=== PATIENT | female | born 1970 | race Caucasian/White ===

== ENCOUNTER 2020-09-18 20:47 | Emergency (ER) | payer OTHER ==
[2020-09-18 21:49] VITALS: BP 133/76; PULSE 93; RESP 18; TEMP 98.2
--- NOTE | 2020-09-18 22:54 | ED ---
Recheck HPI - General Chief Complaint: Recheck/Abnormal Lab/Rx Stated Complaint: diarrhea Time Seen by Provider: 09/18/20 22:53 Source: family Mode of arrival: ambulatory Limitations: no limitations - History of Present Illness Initial Comments: 50-year-old female patient presents to the emergency department today requesting testing for COVID-19. Patient states that she has been having symptoms for the last 4-5 days. States that her son tested positive. States that she needs a positive test for her job. States that she is having cough, nausea, fatigue. Denies any significant shortness of breath. Denies any rash. States she is also having some diarrhea but eating yogurt seems to help. Denies any known fever or chills. Patient denies any recent chest pain, abdominal pain, back pain, numbness, tingling, dizziness, weakness, hematuria, dysuria, urinary urgency, urinary frequency, headache, visual changes, or any other complaints. - Related Data Previous Rx's Medication Instructions Recorded Medroxyprogesterone Acetate 10 mg PO DAILY #10 tab 07/30/15 [Provera] Allergies Allergy/AdvReac Type Severity Reaction Status Date / Time Penicillins Allergy Unknown Verified 09/18/20 21:49 Review of Systems ROS Statement: Those systems with pertinent positive or pertinent negative responses have been documented in the HPI. ROS Other: All systems not noted in ROS Statement are negative. Past Medical History Past Medical History: No Reported History History of Any Multi-Drug Resistant Organisms: None Reported Additional Past Surgical History / Comment(s): uterine surgery after childbirth Past Psychological History: No Psychological Hx Reported Smoking Status: Never smoker Past Alcohol Use History: None Reported Past Drug Use History: None Reported General Exam Limitations: no limitations General appearance: alert, in no apparent distress, other (Physical well- developed, well-nourished adult female patient in no acute distress.) Respiratory exam: Present: normal lung sounds bilaterally. Absent: respiratory distress, wheezes, rales, rhonchi, stridor Cardiovascular Exam: Present: regular rate, normal rhythm, normal heart sounds. Absent: systolic murmur, diastolic murmur, rubs, gallop, clicks GI/Abdominal exam: Present: soft, normal bowel sounds. Absent: distended, tenderness, guarding, rebound, rigid Neurological exam: Present: alert, oriented X3, CN II-XII intact Psychiatric exam: Present: normal affect, normal mood Skin exam: Present: warm, dry, intact, normal color. Absent: rash Course Vital Signs 09/18/20 21:43 Temperature 98.2 F Pulse Rate 93 Respiratory 18 Rate Blood Pressure 133/76 O2 Sat by Pulse 97 Oximetry Medical Decision Making - Medical Decision Making 50-year-old female patient presented to the emergency department today requesting COVID-19 test. Has had symptoms for the last 4-5 days, but needs confirmation for her job. Physical examination is unremarkable. She did test positive. She declines further testing or evaluation. I did discuss receiving bamlanivimab infusion including risks and benefits of receiving and not receiving. She declines. I did discuss time parameters regarding infusion, she verbalized understanding. He is instructed to follow-up with her primary care physician for recheck in 1-2 days. Return parameters were discussed in detail. She verbalizes understanding and agrees with this plan. My attending is Dr. Harding. - Lab Data Lab Results 09/18/20 Range/Units 21:50 Coronavirus (PCR) Detected A (Not Detectd) Disposition Clinical Impression: COVID-19 Disposition: HOME SELF-CARE Condition: Good Instructions (If sedation given, give patient instructions): Coronavirus Disease 2019 (COVID-19) Additional Instructions: Follow up with primary care physician for recheck in 1-2 days. Return to the emergency department for any new, worsening, or concerning symptoms. Is patient prescribed a controlled substance at d/c from ED?: No Referrals: None,Stated [Primary Care Provider] - 1-2 days Time of Disposition: 22:54
== END 2020-09-18 23:03 | disposition home or self-care (01) ==
LOC: EC 20:47
DX: U07.1 COVID-19 (principal)
CPT/HCPCS: 87635; 99284

== ENCOUNTER 2024-03-16 14:44 | Emergency (ER) | payer OTHER ==
[2024-03-16 14:49] VITALS: BP 145/93; RESP 17; TEMP 98.6
--- NOTE | 2024-03-16 15:12 | ED ---
URI HPI - General Chief Complaint: Upper Respiratory Infection Stated Complaint: Cough, chest congestion Time Seen by Provider: 03/16/24 14:50 Source: patient, RN notes reviewed Mode of arrival: ambulatory Limitations: no limitations - History of Present Illness Initial Comments: This is a 53-year-old female who presents to the emergency department for URI symptoms. States that last week she was having coughing and congestion with associated headaches. Over the last couple of days states that this has moved to her chest she feels like it is making her short of breath. She is having difficulty coughing up all of the phlegm as a result. Denies any history of asthma or COPD. She has not yet been evaluated for these symptoms or taken any medication for it. Denies any fevers/chills or sick contacts. MD Complaint: cough, nasal congestion - Related Data Previous Rx's Medication Instructions Recorded Medroxyprogesterone Acetate 10 mg PO DAILY #10 tab 07/30/15 [Provera] Albuterol Sulfate [Albuterol 1 - 2 puff PO Q4-6H PRN #8.5 gm 03/16/24 Sulfate Hfa] Azithromycin [Zithromax] 250 mg PO DIRECTED 5 Days #6 tab 03/16/24 Benzonatate [Tessalon Perle] 200 mg PO TID PRN #30 capsule 03/16/24 Allergies Allergy/AdvReac Type Severity Reaction Status Date / Time Penicillins Allergy Unknown Verified 03/16/24 14:49 Review of Systems ROS Statement: Those systems with pertinent positive or pertinent negative responses have been documented in the HPI. ROS Other: All systems not noted in ROS Statement are negative. Past Medical History Past Medical History: No Reported History History of Any Multi-Drug Resistant Organisms: None Reported Additional Past Surgical History / Comment(s): uterine surgery after childbirth Past Psychological History: No Psychological Hx Reported Smoking Status: Never smoker Past Alcohol Use History: None Reported Past Drug Use History: None Reported General Exam Limitations: no limitations General appearance: alert, in no apparent distress Head exam: Present: atraumatic, normocephalic, normal inspection Respiratory exam: Present: decreased breath sounds, prolonged expiratory Cardiovascular Exam: Present: regular rate, normal rhythm, normal heart sounds. Absent: systolic murmur, diastolic murmur, rubs, gallop, clicks Neurological exam: Present: alert, oriented X3, CN II-XII intact Psychiatric exam: Present: normal affect, normal mood Skin exam: Present: warm, dry, intact, normal color. Absent: rash Course Vital Signs 03/16/24 03/16/24 03/16/24 14:45 15:58 16:06 Temperature 98.6 F Pulse Rate 99 84 82 Respiratory 17 Rate Blood Pressure 145/93 O2 Sat by Pulse 93 L Oximetry Medical Decision Making - Medical Decision Making This is a 53 year old female who presents to the emergency department for coughing and YOSEF. Was pt. sent in by a medical professional or institution? @ -No Did you speak to anyone other than the patient for history? @ -No Did you review nursing and triage notes? @ -Yes, and I agree, it is accurate with regards to the patient's symptoms. Were old charts reviewed? @ -No Differential Diagnosis? @ -Differential Cough: Influenza, Covid, RSV, croup, allergic rhinitis, GERD, pneumonia, bronchitis, COPD, viral pharyngitis, streptococcal pharyngitis, this is not meant to be an all-inclusive list. EKG interpreted by me (3pts min.)? @ -Not obtained X-rays interpreted by me (1pt min.)? @ -Chest x-ray obtained. My interpretation identifies an opacity in the left inferior lingula. CT interpreted by me (1pt min.)? @ -Not obtained U/S interpreted by me (1pt. min.)? @ -Not obtained What testing was considered but not performed? (CT, X-rays, U/S, labs)? Why? @ -None What meds were considered but not given? Why? @ -None Did you discuss the management of the patient with other professionals? @ -No Did you reconcile home meds? @ -No Was smoking cessation discussed for >3mins.? @ -No Was critical care preformed (if so, how long)? @ -No Were there social determinants of health that impacted care today? How? (Homelessness, low income, unemployed, alcoholism, drug addiction, transportation, low edu. Level, literacy, decrease access to med. care, care home, rehab)? @ -No Was there de-escalation of care discussed even if they declined? (Discuss DNR or withdrawal of care, Hospice)? @ -No What co-morbidities impacted this encounter? (DM, HTN, Smoking, COPD, CAD, Cancer, CVA, Hep., AIDS, mental health diagnosis, sleep apnea, morbid obesity)? @ -None Was patient admitted / discharged? @ -Discharged. COVID, influenza, and RSV testing negative. Chest x-ray demonstrates an inferior left lingular pneumonia. She was given 1g of IM Rocephin and 500 mg of azithromycin in the emergency department. 10 mg of IM Decadron and DuoNeb breathing treatment administered as well. Patient states that she has no comorbidities or respiratory illnesses and is comfortable with trying outpatient management first. She was given very strict return parameters. Prescription for azithromycin provided along with an albuterol inhaler and Tessalon Perles. Advised close follow-up with her PCP. Patient discharged home in stable condition. Case discussed with ED attending Dr. Che. Return precautions reviewed in depth, the patient is instructed to return to the emergency department with any new, worsening, or concerning symptoms. Patient verbalized understanding. Undiagnosed new problem with uncertain prognosis? @ -None Drug Therapy requiring intensive monitoring for toxicity (Heparin, Nitro, Insulin, Cardizem)? @ -None Were any procedures done? @ -None Diagnosis/symptom? @ -Pneumonia Acute, or Chronic, or Acute on Chronic? @ -Acute Uncomplicated (without systemic symptoms) or Complicated (systemic symptoms)? @ -Uncomplicated Side effects of treatment? @ -None Exacerbation, Progression, or Severe Exacerbation] @ -Not applicable Poses a threat to life or bodily function? @ -No - Lab Data Lab Results 03/16/24 Range/Units 14:50 Influenza Type A (PCR) Not Detected (Not Detectd) Influenza Type B (PCR) Not Detected (Not Detectd) RSV (PCR) Not Detected (Not Detectd) SARS-CoV-2 (PCR) Not Detected (Not Detectd) - Radiology Data Radiology results: report reviewed, image reviewed Disposition Clinical Impression: Pneumonia Disposition: HOME SELF-CARE Instructions (If sedation given, give patient instructions): Pneumonia (ED) Additional Instructions: Return to the emergency department with any new, worsening, or concerning symptoms. Take the antibiotic as prescribed for 5 days. Use the albuterol inhaler every 4-6 hours as needed for shortness of breath. You can take the cough medication up to every 8 hours. Follow up with your primary care provider in 1-2 days. Prescriptions: Albuterol Sulfate [Albuterol Sulfate Hfa] 1 - 2 puff PO Q4-6H PRN #8.5 gm PRN Reason: Shortness Of Breath Benzonatate [Tessalon Perle] 200 mg PO TID PRN #30 capsule PRN Reason: Cough Azithromycin [Zithromax] 250 mg PO DIRECTED 5 Days #6 tab Is patient prescribed a controlled substance at d/c from ED?: No Referrals: None,Stated [Primary Care Provider] - 1-2 days Forms: PH Area PCPs Time of Disposition: 16:08
--- NOTE | 2024-03-16 15:37 | XR ---
EXAMINATION TYPE: XR chest 2V DATE OF EXAM: 03/16/2024 COMPARISON: None HISTORY: 53 year-old female shortness of breath, difficulty breathing TECHNIQUE: PA and lateral views FINDINGS: Heart normal size. Moderate interstitial density with focal patchy inferior lingular opacity partiall y silhouetting the left heart margin. No pleural effusion. IMPRESSION: Exam positive for inferior lingular pneumonia. [facility], , 03/16/2024 3:34 PM
[2024-03-16] MEDS: IPRATROPIUM-ALBUTEROL 3 ML NEB INHALATION STA (15:57)
[2024-03-16 16:06] VITALS: PULSE 82
[2024-03-16] MEDS: DEXAMETHASONE SOD PHOSPHATE 10 MG/ML 1 ML VIAL IM STA (16:20)
[2024-03-16] MEDS: cefTRIAXone 1,000 MG VIAL (IM USE) IM STA (16:20)
[2024-03-16] MEDS: AZITHROMYCIN 500 MG TAB PO STA (16:21)
== END 2024-03-16 16:34 | disposition home or self-care (01) ==
LOC: EC 14:44
DX: R07.9 Chest pain, unspecified
CPT/HCPCS: 71046; 87636; 94640; 96372; 99283

== ENCOUNTER 2024-10-14 11:29 | Emergency (ER) | payer OTHER ==
[2024-10-14] MEDS ORDERED: IPRATROPIUM-ALBUTEROL 3 ML NEB INHALATION STA (12:01)
--- NOTE | 2024-10-14 12:17 | ED ---
General Adult HPI - General Chief complaint: Upper Respiratory Infection Stated complaint: difficulty breathing Time Seen by Provider: 10/14/24 11:42 Source: patient, RN notes reviewed Mode of arrival: ambulatory Limitations: no limitations - History of Present Illness Initial comments: 54-year-old female no significant past medical history presents to the emergency department for cough, congestion, shortness of breath. Patient states that this been going on since . She noted initially having muscle aches and cold sweats. She states that over the past couple of days she noticed that she has felt more winded with activity. She notes mild cough which is nonproductive. She also endorses head pressure and nasal congestion. Notes fevers at home. - Related Data Previous Rx's Medication Instructions Recorded Medroxyprogesterone Acetate 10 mg PO DAILY #10 tab 07/30/15 [Provera] Albuterol Sulfate [Albuterol 1 - 2 puff PO Q4-6H PRN #8.5 gm 03/16/24 Sulfate Hfa] Azithromycin [Zithromax] 250 mg PO DIRECTED 5 Days #6 tab 03/16/24 Benzonatate [Tessalon Perle] 200 mg PO TID PRN #30 capsule 03/16/24 Allergies Allergy/AdvReac Type Severity Reaction Status Date / Time Penicillins Allergy Unknown Verified 10/14/24 11:33 Review of Systems ROS Statement: Those systems with pertinent positive or pertinent negative responses have been documented in the HPI. ROS Other: All systems not noted in ROS Statement are negative. Past Medical History Past Medical History: No Reported History History of Any Multi-Drug Resistant Organisms: None Reported Additional Past Surgical History / Comment(s): uterine surgery after childbirth Past Psychological History: No Psychological Hx Reported Smoking Status: Never smoker Past Alcohol Use History: None Reported Past Drug Use History: None Reported General Exam Limitations: no limitations General appearance: alert, in no apparent distress Head exam: Present: atraumatic, normocephalic, normal inspection Eye exam: Present: normal appearance, PERRL, EOMI. Absent: scleral icterus, conjunctival injection, periorbital swelling ENT exam: Present: normal exam, mucous membranes moist Neck exam: Present: normal inspection. Absent: tenderness, meningismus, lymphadenopathy Respiratory exam: Present: normal lung sounds bilaterally. Absent: respiratory distress, wheezes, rales, rhonchi, stridor Cardiovascular Exam: Present: regular rate, normal rhythm, normal heart sounds. Absent: systolic murmur, diastolic murmur, rubs, gallop, clicks Extremities exam: Present: normal inspection, full ROM, normal capillary refill. Absent: tenderness, pedal edema, joint swelling, calf tenderness Back exam: Present: normal inspection Neurological exam: Present: alert, oriented X3 Psychiatric exam: Present: normal affect, normal mood Skin exam: Present: warm, dry, intact, normal color. Absent: rash Course Vital Signs 10/14/24 10/14/24 11:30 13:13 Temperature 100.6 F H 100.3 F H Pulse Rate 84 86 Respiratory 20 18 Rate Blood Pressure 98/65 116/69 O2 Sat by Pulse 96 95 Oximetry Medical Decision Making - Medical Decision Making Was pt. sent in by a medical professional or institution (Dr. PA, PHOTOGRAPHIC PROCESS WORKER, urgent care, hospital, or [facility]...) When possible be specific @ -[No] Did you speak to anyone other than the patient for history (EMS, parent, family, police, friend...)? What history was obtained from this source @ -[No] Did you review nursing and triage notes (agree or disagree)? Why? @ -[I reviewed and agree with nursing and triage notes] Were old charts reviewed (outside hosp., previous admission, EMS record, old EKG, old radiological studies, urgent care reports/EKG's, [facility] records)? Report findings @ -[No old charts were reviewed] Differential Diagnosis (chest pain, altered mental status, abdominal pain women, abdominal pain men, vaginal bleeding, weakness, fever, dyspnea, syncope, headache, dizziness, GI bleed, back pain, seizure, CVA, palpatations, mental health, musculoskeletal)? @ -Differential Dyspnea: Coronary syndrome, arrhythmia, tamponade, asthma, COPD, pulmonary embolism, pneumonia, pneumothorax, pulmonary effusion, anaphylaxis, diabetic ketoacidosis, flailed chest, pulmonary contusion, diaphragmatic rupture, anemia, neuromuscular, this is not meant to be an all-inclusive list. EKG interpreted by me (3pts min.). @ -[As above] X-rays interpreted by me (1pt min.). @ -[None done] CT interpreted by me (1pt min.). @ -[None done] U/S interpreted by me (1pt. min.). @ -[None done] What testing was considered but not performed or refused? (CT, X-rays, U/S, labs)? Why? @ -[None] What meds were considered but not given or refused? Why? @ -[None] Did you discuss the management of the patient with other professionals ([employer] i.e. , PA, PHOTOGRAPHIC PROCESS WORKER, lab, RT, psych nurse, social work administrator, division traffic superintendent, teacher, loan workout officer, shoe caser)? Give summary @ -[No] Was smoking cessation discussed for >3mins.? @ -[No] Was critical care preformed (if so, how long)? @ -[No] Were there social determinants of health that impacted care today? How? (Homelessness, low income, unemployed, alcoholism, drug addiction, transportation, low edu. Level, literacy, decrease access to med. care, residential, rehab)? @ -[No] Was there de-escalation of care discussed even if they declined (Discuss DNR or withdrawal of care, Hospice)? DNR status @ -[No] What co-morbidities impacted this encounter? (DM, HTN, Smoking, COPD, CAD, Cancer, CVA, ARF, Chemo, Hep., AIDS, mental health diagnosis, sleep apnea, morbid obesity)? @ -[None] Was patient admitted / discharged? Hospital course, mention meds given and route, prescriptions, significant lab abnormalities, going to OR and other pertinent info. @ -[hospital course] Undiagnosed new problem with uncertain prognosis? @ -[No] Drug Therapy requiring intensive monitoring for toxicity (Heparin, Nitro, Insulin, Cardizem)? @ -[No] Were any procedures done? @ -[No] Diagnosis/symptom? @ -[default] Acute, or Chronic, or Acute on Chronic? @ -[default] Uncomplicated (without systemic symptoms) or Complicated (systemic symptoms)? @ -[default] Side effects of treatment? @ -[No] Exacerbation, Progression, or Severe Exacerbation? @ -[No] Poses a threat to life or bodily function? How? (Chest pain, USA, PA, pneumonia, PE, COPD, DKA, ARF, appy, cholecystitis, CVA, Diverticulitis, Homicidal, [place] icidal, threat to staff... and all critical care pts) @ -[No] - Lab Data Lab Results 10/14/24 Range/Units 12:06 Influenza Type A (PCR) Not Detected (Not Detectd) Influenza Type B (PCR) Not Detected (Not Detectd) RSV (PCR) Not Detected (Not Detectd) SARS-CoV-2 (PCR) Detected A (Not Detectd) Disposition Clinical Impression: COVID-19 Disposition: HOME SELF-CARE Condition: Stable Instructions (If sedation given, give patient instructions): COVID-19 (Coronavirus Disease 2019) (ED) Additional Instructions: Increase your fluid hydration. Utilize Tylenol or Motrin as needed for fever and discomfort. Please follow-up with your doctor. Return to the emergency department for new or worsening symptoms. Is patient prescribed a controlled substance at d/c from ED?: No Referrals: None,Stated [Primary Care Provider] - 1-2 days
--- NOTE | 2024-10-14 12:17 | XR ---
Chest, 2 view. CLINICAL INDICATION: Female, 54 years old with history of fever COMPARISON: 03/16/2024 TECHNIQUE: PA and lateral views the chest are obtained. FINDINGS: The lungs are clear and there is no consolidative or interstitial opacity. There is no pleural effusion or pneumothorax. The heart, pulmonary vasculature, mediastinum and lena appear normal. The osseous structures are intact. IMPRESSION: No significant abnormality seen. No acute cardiopulmonary disease. The left lower lobe pneumonia seen on the prior study has resolved in the interval. [facility], , 10/14/2024 12:15 PM
[2024-10-14] MEDS: IBUPROFEN 600 MG TAB PO STA (12:31)
[2024-10-14] MEDS: ACETAMINOPHEN TAB 500 MG TAB PO STA (12:31)
[2024-10-14 12:52] LABS: Influenza A Not Detected (Not Detectd); Influenza B Not Detected (Not Detectd); RSV Not Detected (Not Detectd)
[2024-10-14] MEDS: ALBUTEROL HFA INHALER INHALATION STA (13:06)
[2024-10-14 13:15] VITALS: BP 116/69; PULSE 86; RESP 18; TEMP 100.3
== END 2024-10-14 14:02 | disposition home or self-care (01) ==
LOC: EC 11:29
DX: U07.1 COVID-19 (principal); Z88.0 Allergy status to penicillin
CPT/HCPCS: 71046; 87636; 94640; 99285